=== PATIENT | female | born 1960 | race Two or more races ===

== ENCOUNTER 2024-11-29 15:19 | Emergency (ER) | payer MEDICAID, OTHER ==
[~2024-11-29] VITALS: Ht 149.9 cm; Wt 127.3 kg
[2024-11-29 15:50] VITALS: BP 141/76; RESP 20; O2SAT 94
[2024-11-29 16:06] VITALS: PULSE 69
--- NOTE | 2024-11-29 16:20 | ED.PDOC ---
Musculoskeletal HPI Comments HPI: Poor Historian. 64 year old female presents to the ED with chief complaint of bilateral foot pain and SOB. Patient reports that she has been experiencing chronic pain to her bilateral feet for years, however, the last 3 days has been especially painful. Patient relays that she also has been experiencing SOB since yesterday. Patient states she had pain medication for her foot pain, but she had stopped them approximately 3 months ago because she moved to this area and has not been able to establish a family doctor since.. Patient denies any trauma, falls, chest pain, dizziness, headache, numbness, or weakness. Initial Vitals: Temp: 97.5F BP: 141/76 HR: 121 RR: 20 O2 Sat.: 92% Past Medical History: COPD. Seizures, HTN, Thyroid, Kidney Stones, Chronic Foot Pain Past Surgical History: Hernia Repair, Tubal Ligation Social History: Denies smoking, ETOH, and drug use Medication: Gabapentin, Levothyroxine, Atorvastatin, Hydralazine, Amlodipine, E nalapril, Albuterol Inhaler Allergies: NKDA HPI: Poor Historian. Past Medcial History: Past Surgical History: REVIEW OF SYSTEMS: CONSTITUTIONAL: Denies acute: fever, diaphoresis, chills, generalized weakness. HEAD: Denies acute: headache, photophobia Eyes: Denies acute: Double vision, vision loss, eye pain, eye discharge. EARS: Denies acute: tinnitus, hearing loss, ear discharge, ear pain, THROAT: Denies acute: sore throat, swelling, difficulty swallowing , pain with swallowing, change in voice. NECK: Denies acute: neck pain, neck swelling, stiff neck. HEART: Denies acute : chest pain, palpitations, LUNGS: Denies acute: SOB, wheezing, cough, hemoptysis ABDOMEN: Denies acute: abdominal pain, Nausea, Vomiting, diarrhea, melena , hematemesis, hematochezia SKIN: Denies acute: rash, redness, lesions, itchiness. EXTREMITIES: Denies acute: calf pain, numbness, tingling, weakness, Denies acute: Low back pain. Neuro: Denies acute: focal neurological deficit, motor or sensory focal neurological deficit, tremors, seizure like activity, confusion, dizziness, change in mental status, loss of bowel or bladder function, cauda equina like symptoms. : Denies acute: dysuria, hematuria, flank pain, increase in urinary frequency. PSYCH: Denies acute: hallucination, suicidal ideation, homicidal ideation. FEMALE: Denies acute: abnormal vaginal bleeding, foul odor, unusual discharge. PHYSICAL EXAM: General: no acute distress, awake and alert. Head: normocephalic, atraumatic. Neck: supple, trachea is midline, no swelling. Throat: Normal phonation. Eyes:, no erythema, no purulent discharge, no proptosis, no icterus. Heart: regular rate, regular rhythm, no significant murmur appreciated. Lungs: no apparent respiratory distress, Able to speak in full sentences. No wheezing, no rhonchi, no crackles. No stridors Clear to auscultation bilaterally. Patient uses supplemental oxygen. Abdomen: non tender to palpation, non distended, soft, no guarding, no rebound, + bowel sounds. Obese Neuro: Awake, Alert, oriented to name, self, situation, follows commands GCS=15. Speech is normal. Skin: no petechia, no purpura, no cyanosis, non-pale, not jaundice. Lower extremities: --no - Pitting edema. Contrary to triage notes suggest that the patient has a leg swelling, I do not appreciate any leg swelling on my exam. no deformity, no focal swelling, no calf TTP. Patient is neurovascularly intact in bilateral lower extremity. Pedal pulses are palpable. Sensory and motor are present. No swelling. Makes eye contact. moves all four extremities. Face: no apparent facial droop. Ambulating in the ED with a walker Pedal pulses are palpable. Chief Complaint: Shortness of Breath Time Seen by MD: 16:17 Reviewed Notes: Medications, Allergies Allergies: Coded Allergies: Penicillins (Verified Allergy, Unknown, 11/29/24) Phenytoin (Verified Allergy, Unknown, 11/29/24) Information Source: Patient Mode of Arrival: Ambulatory Location: Bilateral Was a procedure done? Was a procedure done?: No Differential Diagnosis EXT Differential Diagnosis: Cellulitis, CHF, Deep Vein Thrombosis, Compartment Syndrome, Fracture, Sprain, Dislocation, Gout, DJD, Contusion, Strain, Septic, Neurovascular injury, Arthritis, Bursitis, Other (As far as the shortness of breath DDx include ACS, unstable angina, anxiety, PE, pneumothroax, neoplasm, cardiac ischemia, COPD, asthma, CHF, pleural effusion, tobacco abuse, pneumonia, hypoxia, hypercapnia, anemia., infection/sepsis., pulmonary edema. Asthma, Cardiac tamponade, infection.) X-Ray, Labs, Meds, VS Vital Signs Date Time Temp Pulse Resp B/P (MAP) Pulse Ox O2 Delivery O2 Flow Rate FiO2 11/29/24 16:06 69 11/29/24 15:50 97.5 121 20 141/76 (97) 94 11/29/24 15:50 20 94 Room Air 3.0 Time of 1ST Reevaluation: 17:17 Reevaluation 1ST: Unchanged Patient Education/Counseling: Other Family Education/Counseling: No Family Present Comments Patient presented with the above HPI.--feet pain and shortness of breath---workup was initiated. patient was found with the above mentioned diagnosis. the following medications were ordered: please refer to order lists of meds and tests obtained by myself Dr. Clement. Patient ED course and VS have been stabilized. Patient has been reassessed in [facility] ED and remained in a stable condition. Escalation of care considered: Consideration of escalation to observation or admission Patient eloped All the reports of any imaging studies that were ordered by myself were reviewed by myself. Departure 1 Departure Time of Disposition: 18:28 Impression: Primary Impression: Chronic pain of both feet Additional Impression: Eloped from emergency department Disposition: 07 LEFT AWOL/ELOPED Condition: Other Additional Instructions: Patient eloped Critical Care Note Critical Care Time?: No I personally scribed for FIONA CLEMENT DO ([email or web address]) on 11/29/24 at 16:20. Electronically submitted by Juan Lindsey ([email or web address]). FIONA CLEMENT DO Nov 29, 2024 16:20
[2024-11-29] MEDS ORDERED: HYDROcodone-ACET 5/325MG TAB PO ONE (16:45)
--- NOTE | 2024-12-01 09:35 | ECG ---
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
== END 2024-11-29 18:13 | disposition left against medical advice (07) ==
LOC: ER 15:26
DX: G89.29 Other chronic pain (principal); M79.672 Pain in left foot; M79.671 Pain in right foot; J44.9 Chronic obstructive pulmonary disease, unspecified; R06.02 Shortness of breath; I10 Essential (primary) hypertension; Z98.890 Other specified postprocedural states; Z98.51 Tubal ligation status; Z88.0 Allergy status to penicillin; Z87.442 Personal history of urinary calculi
CPT/HCPCS: 93005